=== PATIENT | male | born 1970 | race Caucasian/White ===

== ENCOUNTER → 2020-11-08 | Outpatient (CLI) | payer OTHER ==
[~2020-11-08] MED LIST: KEFLEX500 MG PO; VICODIN 5-5001 EACH PO
== END ==
LOC: M.LAB 14:45
PROVIDERS: ATTEND Orthopaedic Surgery
DX: Z01.812 Encounter for preprocedural laboratory examination (principal); Z20.822 Contact with and (suspected) exposure to COVID-19

== ENCOUNTER 2021-06-07 11:06 | Emergency (ER) | payer OTHER ==
[~2021-06-07] VITALS: Ht 167.6 cm; Wt 81.7 kg
[2021-06-07] MEDS ORDERED: PREDNISONE 20 M20 M1 PO (12:33)
[2021-06-07] MEDS ORDERED: HYDROCODON-ACE1 EAC7 PO (12:33)
[2021-06-07 12:45] VITALS: BP 134/72
== END 2021-06-07 12:46 | disposition home or self-care (01) ==
LOC: M.ERS 11:06
DX: M70.52 Other bursitis of knee, left knee (principal); X50.1XXA Overexertion from prolonged static or awkward postures, initial encounter; Y93.89 Activity, other specified; Y92.89 Other specified places as the place of occurrence of the external cause; Y99.0 Civilian activity done for income or pay

== ENCOUNTER 2021-06-30 15:59 | Emergency (ER) | payer OTHER ==
[~2021-06-30] VITALS: Ht 167.6 cm; Wt 81.7 kg
[~2021-06-30 15:59] MED LIST changes: +HYDROCODON-ACE1 EAC7 PO; +PREDNISONE 20 M20 M1 PO
[2021-06-30 16:51] LABS: ABSOLUTE BASOPHILS 0.1 thou/uL (0.0-0.2); ABSOLUTE EOSINOPHILS 0.4 thou/uL (0.0-0.7); ABSOLUTE LYMPHOCYTES 3.2 thou/uL (0.8-5.3); ABSOLUTE MONOCYTES 0.6 thou/uL (0.0-1.2); ABSOLUTE NEUTROPHILS 5.8 thou/uL (1.6-8.1); BASOPHILS 0.7 %; EOSINOPHILS 3.8 %; HEMATOCRIT 39.1 % (42.0-52.0); LYMPHOCYTES 32.3 %; MCH 27.4 pg (26.0-34.0); MCHC 33.3 g/dL (28.0-37.0); MCV 82.2 fL (80.0-100.0); MPV 7.9 fl. (7.2-11.1); NUCLEATED RBCS 0 /100WBC; PLATELET COUNT* 328 thou/uL (150-400); POLYS 57.2 %; RBC 4.76 mil/uL (4.50-6.00); RDW-CV 12.4 % (10.5-14.5); WBC 10.1 thou/uL (4.0-11.0)
[2021-06-30] MEDS ORDERED: LISINOPRIL5 MG PO (17:08)
[2021-06-30] MEDS ORDERED: CEPHALEXIN500 MG PO (17:08)
[2021-06-30] MEDS ORDERED: MEDROLDOSEPACK PO (17:08)
[2021-06-30 17:39] VITALS: BP 133/95
== END 2021-06-30 17:40 | disposition home or self-care (01) ==
LOC: M.ERS 15:59
PROVIDERS: Nurse Practitioner Psychiatric/Mental Health
DX: M70.41 Prepatellar bursitis, right knee (principal); Y93.89 Activity, other specified; I10 Essential (primary) hypertension